=== PATIENT | female | born 1930 | race African-American/Black ===

== ENCOUNTER 2018-02-11 09:50 | Inpatient (IN) | payer MEDICARE ==
[~2018-02-11] VITALS: Ht 165.1 cm; Wt 81.6 kg
[2018-02-11] MEDS ORDERED: SODIUM CHLORIDE 0.9% 1,000 ML IV ONE (10:22)
[2018-02-11 10:48] LABS: BASOPHILS % 0.9 % (0.0-2.0); HEMATOCRIT. 35.6 % (36.0-48.0); HEMOGLOBIN. 11.5 g/dL (12.0-16.0); LYMPHOCYTES % 21.3 % (20.0-50.0); MEAN CORPUSCULAR HEMOGLOBIN 28.9 pg (28.0-32.0); MEAN CORPUSCULAR VOLUME 89.7 fL (81.0-99.0); MEAN PLATELET VOLUME 9.2 fl (7.4-10.4); MONOCYTES % 10.2 % (2.0-8.0); NEUTROPHILS % 66.6 % (40.0-76.0); PLATELET 220 x1000/uL (130-400); RED BLOOD CELL COUNT 3.97 mill/uL (4.2-5.4); RED CELL DISTRIBUTION WIDTH 15.8 % (11.6-14.6)
[2018-02-11 10:57] LABS: CHLORIDE 96 mEq/L (98-107); PROTHROMBIN TIME 10.3 sec (9.1-11.1)
[2018-02-11 11:08] LABS: BETA HYDROXYBUTYRATE 0.5 mMol/L (0.0-0.3)
[2018-02-11] MEDS ORDERED: INSULIN REGULAR (HUMULIN R) UD 100 UNITS/ML SYR IV ONE (12:00)
[2018-02-11 13:18] LABS: CLARITY URINE CLEAR (CLEAR); COLOR URINE YELLOW (YELLOW); KETONES URINE NEGATIVE (NEGATIVE); LEUKOCYTE ESTERASE URINE NEGATIVE (NEGATIVE); NITRITE URINE NEGATIVE (NEGATIVE); OCCULT BLOOD URINE NEGATIVE (NEGATIVE); PROTEIN URINE 3+ (NEGATIVE); UROBILINOGEN URINE 0.2 E.U./dL (0.2-1.0)
[2018-02-11] MEDS ORDERED: INSULIN REGULAR (HUMULIN R) 300UNITS/3ML IV NR (13:34)
[2018-02-11 22:25] VITALS: BP 147/50
[2018-02-11 22:30] VITALS: BP 147/50
[2018-02-12] MEDS ORDERED: HYDROCODONE/ACETAMINOPHEN 5/325MG TABLET PO PRN (00:15)
[2018-02-12] MEDS ORDERED: DEXTROSE 50% WATER 50ML SYRINGE IV PRN (00:15)
[2018-02-12] MEDS ORDERED: SODIUM CHLORIDE 0.9% 1,000 ML IV SCH (01:00)
[2018-02-12 04:00] VITALS: BP 161/65
[2018-02-12] MEDS: BLOOD SUGAR DIAGNOSTIC STRIP TEST SCH ×4 (06:18→20:49)
[2018-02-12 06:36] LABS: BASOPHILS % 0.3 % (0.0-2.0); EOSINOPHILS % 0.8 % (0.0-5.0); HEMATOCRIT. 29.1 % (36.0-48.0); HEMOGLOBIN. 9.6 g/dL (12.0-16.0); LYMPHOCYTES % 27.9 % (20.0-50.0); MEAN CORPUSCULAR HEMOGLOBIN 29.2 pg (28.0-32.0); MEAN CORPUSCULAR VOLUME 88.1 fL (81.0-99.0); MEAN PLATELET VOLUME 9.1 fl (7.4-10.4); MONOCYTES % 10.9 % (2.0-8.0); NEUTROPHILS % 60.1 % (40.0-76.0); PLATELET 202 x1000/uL (130-400); RED CELL DISTRIBUTION WIDTH 15.8 % (11.6-14.6)
[2018-02-12 06:44] LABS: CHLORIDE 101 mEq/L (98-107)
[2018-02-12 06:55] LABS: HDL CHOLESTEROL 56 mg/dL (40-59); LDL CHOLESTEROL 59 mg/dL (5-100)
[2018-02-12 08:00] VITALS: BP 136/58
[2018-02-12] MEDS: INSULIN LISPRO 100 UNITS/ML SUBCUT SCH ×3 (08:23→17:19)
[2018-02-12] MEDS ORDERED: ENOXAPARIN 30MG/0.3ML SYR SUBCUT SCH (09:00)
[2018-02-12] MEDS ORDERED: LOSARTAN POTASSIUM 50 MG TABLET PO SCH (09:00)
[2018-02-12] MEDS ORDERED: ASPIRIN 81MG TABLET PO SCH (09:00)
[2018-02-12 12:00] VITALS: BP 101/55
[2018-02-12 16:00] VITALS: BP 118/47
[2018-02-12 20:00] VITALS: BP 140/50
== END 2018-02-12 20:54 | disposition home or self-care (01) | DRG 638 ==
LOC: ER 09:50 → EDBEDREQ 13:50 → EDBEDREQTM 13:50 → 7WST 13:59 → ENRESERV 15:56 → CANRESERV 15:56 → ENRESERV 21:09
PROVIDERS: ADMIT Internal Medicine; ATTEND Internal Medicine
DX: E11.65 Type 2 diabetes mellitus with hyperglycemia (principal); N18.4 Chronic kidney disease, stage 4 (severe); R55 Syncope and collapse; D64.9 Anemia, unspecified; E11.22 Type 2 diabetes mellitus with diabetic chronic kidney disease; E86.0 Dehydration; I12.9 Hypertensive chronic kidney disease with stage 1 through stage 4 chronic kidney disease, or unspecified chronic kidney disease; W18.39XA Other fall on same level, initial encounter; Y93.89 Activity, other specified; Y92.89 Other specified places as the place of occurrence of the external cause; Y99.8 Other external cause status; Z90.710 Acquired absence of both cervix and uterus
CPT/HCPCS: 36415; 71045; 76770; 80061; 82010; 82962; 84443; 84484; 93005; 96361; 96374; 99285; J1650; J1815; J7030

== ENCOUNTER 2018-07-21 18:22 | Inpatient (IN) | payer MEDICARE ==
[~2018-07-21] VITALS: Ht 160 cm; Wt 73.1 kg
[2018-07-21] MEDS ORDERED: ASPI-1159 PO (18:35)
[2018-07-21] MEDS ORDERED: ONDANSETRON HCL 4MG/2ML INJ IV STA (20:33)
[2018-07-21 21:21] LABS: CHLORIDE 103 mEq/L (98-107)
[2018-07-21 21:26] LABS: BASOPHILS % 0.3 % (0.0-2.0); EOSINOPHILS % 1.4 % (0.0-5.0); HEMATOCRIT. 33.1 % (36.0-48.0); HEMOGLOBIN. 10.8 g/dL (12.0-16.0); LYMPHOCYTES % 13.6 % (20.0-50.0); MEAN CORPUSCULAR VOLUME 97.9 fL (81.0-99.0); MEAN PLATELET VOLUME 7.9 fl (7.4-10.4); MONOCYTES % 6.8 % (2.0-8.0); NEUTROPHILS % 77.9 % (40.0-76.0); PLATELET 220 x1000/uL (130-400); RED BLOOD CELL COUNT 3.38 mill/uL (4.2-5.4)
[2018-07-22 04:29] VITALS: BP 164/61
[2018-07-22 04:34] VITALS: BP 164/61
[2018-07-22] MEDS ORDERED: PARI1CAP3 PO (04:57)
[2018-07-22] MEDS ORDERED: FURO20TA4 PO (04:57)
[2018-07-22] MEDS ORDERED: METO25TA6 PO (04:57)
[2018-07-22] MEDS ORDERED: METO10TA3 PO (04:57)
[2018-07-22] MEDS ORDERED: ALLO100T PO (04:57)
[2018-07-22] MEDS ORDERED: HYDR-4135 PO (04:57)
[2018-07-22] MEDS ORDERED: FOLI0.8T23 MT (04:57)
[2018-07-22] MEDS ORDERED: SERT50TA12 PO (04:57)
[2018-07-22] MEDS ORDERED: ACETAMINOPHEN 325MG TABLET PO PRN (06:00)
[2018-07-22] MEDS ORDERED: DEXTROSE 50% WATER 50ML SYRINGE IV PRN (06:00)
[2018-07-22] MEDS: BLOOD SUGAR DIAGNOSTIC STRIP TEST SCH ×4 (06:29→20:35)
[2018-07-22] MEDS: HYDRALAZINE HCL 50MG TABLET PO SCH ×3 (06:32→21:53)
[2018-07-22 08:00] VITALS: BP 134/50
[2018-07-22] MEDS: INSULIN LISPRO 100 UNITS/ML SUBCUT SCH ×4 (08:00→20:36)
[2018-07-22] MEDS ORDERED: MEDICATION NOT ON FORMULARY EA (Allopurinol 100 MG) PO SCH (09:00)
[2018-07-22] MEDS ORDERED: MEDICATION NOT ON FORMULARY EA (Hydralazine Hcl 50 MG) PO SCH (09:00)
[2018-07-22] MEDS: ALLOPURINOL 100 MG TABLET PO SCH (09:23)
[2018-07-22] MEDS: METOPROLOL TARTRATE 50MG TABLET PO SCH (09:23)
[2018-07-22] MEDS: PARICALCITOL 1 MCG CAPSULE PO SCH (09:23)
[2018-07-22 12:00] VITALS: BP 106/48
[2018-07-22 12:30] LABS: CHLORIDE 99 mEq/L (98-107); INR 1.1; PROTHROMBIN TIME 11.2 sec (9.6-11.0)
[2018-07-22 12:36] LABS: HEMOGLOBIN. 9.7 g/dL (12.0-16.0); MEAN CORPUSCULAR HEMOGLOBIN 30.6 pg (28.0-32.0); PLATELET 226 x1000/uL (130-400); RED BLOOD CELL COUNT 3.16 mill/uL (4.2-5.4); RED CELL DISTRIBUTION WIDTH 16.6 % (11.6-14.6)
[2018-07-22] MEDS ORDERED: CLONIDINE 0.1MG TABLET PO PRN (12:45)
[2018-07-22] MEDS ORDERED: ONDANSETRON HCL 4MG/2ML INJ IV PRN (12:45)
[2018-07-22] MEDS ORDERED: DIPHENHYDRAMINE 50MG/ML VIAL IV PRN (12:45)
[2018-07-22] MEDS ORDERED: DOCUSATE SODIUM 100MG CAPSULE PO PRN (12:45)
[2018-07-22] MEDS ORDERED: VANCOMYCIN 1500MG in DEXTROSE 5% WATER 250ML IV NR (13:00)
[2018-07-22] MEDS: PIPERACILLIN/TAZ 2.25G PREMIX 50 ML IV SCH ×3 (13:04→23:58)
[2018-07-22 13:58] LABS: NUCLEATED RED BLOOD CELLS 1 /100 WBC; PLATELET ESTIMATE NORMAL
[2018-07-22 16:00] VITALS: BP 129/52
[2018-07-22 16:08] LABS: CREATINE KINASE MB FRACTION 1.1 ng/mL (0.5-3.6)
[2018-07-22 18:44] LABS: CLARITY URINE TURBID (CLEAR); COLOR URINE AMBER (YELLOW); KETONES URINE TRACE (NEGATIVE); LEUKOCYTE ESTERASE URINE 3+ (NEGATIVE); NITRITE URINE NEGATIVE (NEGATIVE); OCCULT BLOOD URINE TRACE (NEGATIVE); PROTEIN URINE 3+ (NEGATIVE); SPECIFIC GRAVITY URINE 1.023 (1.005-1.030); UROBILINOGEN URINE 0.2 E.U./dL (0.2-1.0)
[2018-07-22 20:00] VITALS: BP 135/54
[2018-07-22] MEDS: HYDROCODONE/ACETAMINOPHEN 5/325MG TABLET PO PRN (20:35)
[2018-07-22 21:07] LABS: CREATINE KINASE 44 IU/L (26-192); CREATINE KINASE MB FRACTION < 1.0 ng/mL (0.5-3.6)
[2018-07-23 00:02] VITALS: BP 127/52
[2018-07-23 04:00] VITALS: BP 134/84
[2018-07-23] MEDS: PIPERACILLIN/TAZ 2.25G PREMIX 50 ML IV SCH ×3 (05:28→17:45)
[2018-07-23] MEDS: HYDRALAZINE HCL 50MG TABLET PO SCH ×3 (05:31→21:47)
[2018-07-23] MEDS: BLOOD SUGAR DIAGNOSTIC STRIP TEST SCH ×4 (06:41→21:10)
[2018-07-23 07:08] LABS: HEMATOCRIT 30.9 % (36.0-48.0); HEMOGLOBIN 9.9 g/dL (12.0-16.0); MEAN CORPUSCULAR HEMOGLOBIN 30.8 pg (28.0-32.0); MEAN CORPUSCULAR VOLUME 95.4 fL (81.0-99.0); PLATELET 221 x1000/uL (130-400); RED BLOOD CELL COUNT 3.23 mill/uL (4.2-5.4); RED CELL DISTRIBUTION WIDTH 16.9 % (11.6-14.6)
[2018-07-23 08:00] VITALS: BP 140/49
[2018-07-23] MEDS: METOPROLOL TARTRATE 50MG TABLET PO SCH (09:00)
[2018-07-23] MEDS: ALLOPURINOL 100 MG TABLET PO SCH (09:07)
[2018-07-23] MEDS: PARICALCITOL 1 MCG CAPSULE PO SCH (09:07)
[2018-07-23] MEDS: INSULIN LISPRO 100 UNITS/ML SUBCUT SCH ×4 (09:11→21:48)
[2018-07-23] MEDS ORDERED: FLUCONAZOLE 200 MG/100ML BAG 100 MG in CONTAINER,EMPTY 0 BAG IV SCH ×2 (10:30→12:00)
[2018-07-23 12:00] VITALS: BP 147/50
[2018-07-23] MEDS ORDERED: FLUCONAZOLE 100 MG/50ML BAG 50 ML IV SCH (12:00)
[2018-07-23 12:44] LABS: BG CARBOXYHEMOGLOBIN 1.1 % (0.5-1.5); BG DEOXYHEMOGLOBIN 4.4 % (0.0-5.0); BG FRACTION INSPIRED OXYGEN 21; BG HCO3 ACT 22.2 mmol/L (22.0-26.0); BG METHEMOGLOBIN 0.3 % (0.0-1.5); BG OXYGEN SATURATION 95.5 % (92.0-98.5); BG OXYHEMOGLOBIN 94.2 % (94.0-97.0); BG PCO2 31.7 mmHg (35.0-45.0); BG PH 7.463 (7.350-7.450); BG PO2 76.8 mmHg (75.0-100.0); BG SAMPLE SITE RIGHT BRACHIAL; BG TOTAL HEMOGLOBIN 10.2 g/dL (12.0-18.0); BG VENT MODE ROOM AIR
[2018-07-23 16:00] VITALS: BP 148/57
[2018-07-23] MEDS ORDERED: POTASSIUM CHLORIDE 20MEQ TABLET SR PO NR (16:30)
[2018-07-23 20:00] VITALS: BP 153/66
[2018-07-23] MEDS: IPRATROPIUM/ALBUTEROL 0.5-3(2.5)MG/3ML NEB HHN SCH (20:39)
[2018-07-23] MEDS: HYDROCODONE/ACETAMINOPHEN 5/325MG TABLET PO PRN (21:46)
[2018-07-24] VITALS: BP 145/60
[2018-07-24] MEDS: PIPERACILLIN/TAZ 2.25G PREMIX 50 ML IV SCH ×2 (00:04→05:30)
[2018-07-24] MEDS: IPRATROPIUM/ALBUTEROL 0.5-3(2.5)MG/3ML NEB HHN SCH ×3 (00:35→18:00)
[2018-07-24 04:00] VITALS: BP 162/64
[2018-07-24] MEDS: HYDRALAZINE HCL 50MG TABLET PO SCH ×2 (05:30→14:00)
[2018-07-24] MEDS: BLOOD SUGAR DIAGNOSTIC STRIP TEST SCH ×3 (06:00→18:33)
[2018-07-24 07:02] LABS: HEMATOCRIT. 27.5 % (36.0-48.0); MEAN CORPUSCULAR HEMOGLOBIN 30.9 pg (28.0-32.0); MEAN CORPUSCULAR VOLUME 94.8 fL (81.0-99.0); MEAN PLATELET VOLUME 8.8 fl (7.4-10.4); PLATELET 225 x1000/uL (130-400)
[2018-07-24 08:00] VITALS: BP_SYST 155; BP_DIAS 59; BP_DIAS 69
[2018-07-24] MEDS: ALLOPURINOL 100 MG TABLET PO SCH (08:19)
[2018-07-24] MEDS: PARICALCITOL 1 MCG CAPSULE PO SCH (08:19)
[2018-07-24] MEDS: METOPROLOL TARTRATE 50MG TABLET PO SCH (08:22)
[2018-07-24] MEDS: INSULIN LISPRO 100 UNITS/ML SUBCUT SCH ×3 (08:23→18:10)
[2018-07-24 12:00] VITALS: BP 117/54
[2018-07-24] MEDS ORDERED: HEPARIN SODIUM 1,000 UNIT/1ML VIAL IV SCH (12:00)
[2018-07-24 12:56] LABS: PLATELET ESTIMATE NORMAL
[2018-07-24] MEDS ORDERED: PIPERACILLIN/TAZ 2.25G PREMIX 50 ML IV SCH (15:00)
[2018-07-24 16:00] VITALS: BP 127/55
[2018-07-24] MEDS ORDERED: FLUCONAZOLE 200 MG/100ML BAG 100 MG in CONTAINER,EMPTY 0 BAG IV SCH (16:00)
[2018-07-24 17:16] VITALS: BP 127/55
[2018-07-24] MEDS ORDERED: VANCOMYCIN 1250MG in DEXTROSE 5% WATER 250ML IV NR (18:00)
== END 2018-07-24 20:06 | DRG 193 ==
LOC: ER 18:22 → 7WST 23:21 → EDBEDREQ 23:24 → EDBEDREQTM 23:24 → ENRESERV 07-22 03:14
PROVIDERS: ADMIT Internal Medicine; ATTEND Internal Medicine
PROC: 5A1D70Z Performance of Urinary Filtration, Intermittent, Less than 6 Hours Per Day (ICD-10-PCS; principal; 2018-07-23)
DX: J18.1 Lobar pneumonia, unspecified organism (principal); N18.6 End stage renal disease; N39.0 Urinary tract infection, site not specified; I12.0 Hypertensive chronic kidney disease with stage 5 chronic kidney disease or end stage renal disease; S00.03XA Contusion of scalp, initial encounter; E11.22 Type 2 diabetes mellitus with diabetic chronic kidney disease; D63.8 Anemia in other chronic diseases classified elsewhere; E11.21 Type 2 diabetes mellitus with diabetic nephropathy; E11.65 Type 2 diabetes mellitus with hyperglycemia; W18.39XA Other fall on same level, initial encounter; Y93.89 Activity, other specified; Y92.89 Other specified places as the place of occurrence of the external cause; Y99.8 Other external cause status; Z79.899 Other long term (current) drug therapy; Z99.2 Dependence on renal dialysis; Z86.73 Personal history of transient ischemic attack (TIA), and cerebral infarction without residual deficits; Z79.82 Long term (current) use of aspirin
CPT/HCPCS: 36415; 36600; 71045; 80048; 80202; 82375; 82550; 82553; 82805; 82962; 83036; 83880; 84484; 85007; 85027; 87106; 93005; 94640; 97162; 97166; 99285; J1450; J1644; J1815; J2543; J3370; J7050; J7060; J7620

== ENCOUNTER 2021-04-20 17:24 | Emergency (ER) | payer MEDICARE ==
[~2021-04-20] VITALS: Ht 160 cm; Wt 69.0 kg
[~2021-04-20 17:24] MED LIST: ALLO100T PO; ASPI-1497 PO; FOLI0.8T23 MT; FURO20TA4 PO; HYDR-4135 PO; METO10TA3 PO; METO25TA6 PO; PARI1CAP3 PO; SERT-422 PO
[2021-04-20 18:32] LABS: HEMATOCRIT. 36.5 % (36.0-48.0); HEMOGLOBIN. 11.4 g/dL (12.0-16.0); MEAN CORPUSCULAR HEMOGLOBIN 27.8 pg (28.0-32.0); MEAN CORPUSCULAR VOLUME 89.1 fL (81.0-99.0); MEAN PLATELET VOLUME 10.3 fl (7.4-10.4); PLATELET 128 x1000/uL (130-400); RED CELL DISTRIBUTION WIDTH 15.8 % (11.6-14.6)
[2021-04-20 18:38] LABS: CHLORIDE 99 mEq/L (98-107)
[2021-04-20 19:14] LABS: PLATELET ESTIMATE DECREASED
[2021-04-20] MEDS ORDERED: VANCOMYCIN 1 G PREMIX 200 ML IV SCH (20:45)
[2021-04-20] MEDS ORDERED: ACETAMINOPHEN 325MG TABLET PO ONE (20:45)
[2021-04-20] MEDS ORDERED: CEFTRIAXONE 1 G PREMIX 50 ML IV ONE (20:45)
[2021-04-20 22:10] VITALS: BP 120/48
== END 2021-04-20 23:21 | disposition home or self-care (01) ==
LOC: ER 17:24
DX: R53.1 Weakness (principal); I12.0 Hypertensive chronic kidney disease with stage 5 chronic kidney disease or end stage renal disease; E11.22 Type 2 diabetes mellitus with diabetic chronic kidney disease; N18.6 End stage renal disease; Z99.2 Dependence on renal dialysis; Z79.899 Other long term (current) drug therapy; Z79.82 Long term (current) use of aspirin
CPT/HCPCS: 36415; 71045; 80053; 83880; 84484; 85025; 87040; 87077; 87186; 87426; 93005; 96365; 96368; 99285; J0696; J3370